=== PATIENT | female | born 2000 | race Caucasian/White ===

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

== ENCOUNTER 2020-01-13 08:40 | Day surgery (SDC) | payer BC ==
[2020-01-09 16:20] VITALS: BMI 33.6
[~2020-01-13 08:40] MED LIST: LACTATED RINGERS 1,000 ML IV SCH
[2020-01-13 08:57] VITALS: TEMP 97.8
[2020-01-13] MEDS ORDERED: LACTATED RINGERS 1,000 ML IV ONE (08:57)
[2020-01-13] MEDS ORDERED: LIDOCAINE 1% (10MG/ML) FOR IV START INTRADERMA ONE (09:05)
[2020-01-13] MEDS ORDERED: PROPOFOL 10 MG/ML 20 ML VIAL IV ONE (09:28)
[2020-01-13] MEDS ORDERED: LIDOCAINE 1% INJ 10MG/ML (20 ML MDV) ONE (09:28)
--- NOTE | 2020-01-13 09:52 | P.PCN ---
Date of Procedure: 01/13/20 Description of Procedure: BRIEF HISTORY: Patient is a 19-year-old female presenting for outpatient EGD for evaluation of abnormal immunological findings in the serum. The patient has been seen in the GI clinic with concerns of celiac disease. She follows up in the outpatient setting for EGD with biopsies. PROCEDURE PERFORMED: Esophagogastroduodenoscopy with biopsy. PREOPERATIVE DIAGNOSIS: Abnormal immunological findings in the serum, rule out celiac sprue. ESTIMATED BLOOD LOSS: Minimal. IV sedation per anesthesia. PROCEDURE: After informed consent was obtained, the patient was brought into the endoscopy unit. IV sedation was administered by Anesthesia under continuous monitoring. Initially the Olympus GIF-190 video endoscope was inserted into the mouth. Esophagus intubated without any difficulty. It was gradually advanced into the stomach and duodenum and carefully examined. The bulb and the second part of the duodenum appeared normal, with some villous blunting noted and biopsies taken to rule out celiac sprue. The scope at this time was withdrawn to the stomach, sheila quately insufflated with air, and upon careful examination, mucosa of the antrum, body, cardia and the fundus appeared normal, except for some mild punctate erythema in the antrum and body suggestive of mild gastritis with biopsies taken. The scope was then withdrawn into the esophagus. The GE junction was located at 37 cm from the incisors and biopsied. The esophagus appeared normal. There were no erosions or ulcerations seen and the patient tolerated the procedure well. IMPRESSION: 1. Mild gastritis. 2. Biopsies of the duodenum, antrum body and GE junction. RECOMMENDATIONS: The findings of this examination were discussed with the patient and her mother. Okay to resume diet. Okay to resume medications. Follow-up in GI clinic as scheduled for results of biopsies.
[2020-01-13 10:08] VITALS: BP 118/74; PULSE 84; RESP 18
== END 2020-01-13 10:24 | disposition home or self-care (01) ==
LOC: ORWHC2ENDO 08:40
PROVIDERS: ATTEND Internal Medicine
DX: K29.50 Unspecified chronic gastritis without bleeding (principal); K29.80 Duodenitis without bleeding; K20.90 Esophagitis, unspecified without bleeding; J45.909 Unspecified asthma, uncomplicated; E07.9 Disorder of thyroid, unspecified; Z79.890 Hormone replacement therapy; Z79.899 Other long term (current) drug therapy; Z88.8 Allergy status to other drugs, medicaments and biological substances; Z98.890 Other specified postprocedural states; Z90.49 Acquired absence of other specified parts of digestive tract
CPT/HCPCS: 81025; 88305; 43239; J2001; J2704

== ENCOUNTER → 2020-04-22 | Outpatient (CLI) | payer BC ==
[2020-04-22 16:11] LABS: Basophils # (A) 0 X 10*3/uL (0.00-0.10); Basophils % (A) 0 %; Eosinophils # (A) 0.08 X 10*3/uL (0.04-0.35); Eosinophils % (A) 1.5 %; HCT 42.9 % (37.2-46.3); HGB 13.8 g/dL (12.0-15.0); Lymphocytes # (A) 2.11 X 10*3/uL (0.90-5.00); Lymphocytes % (A) 38.7 %; MCH 31.4 pg (27.0-32.0); MCHC 32.2 g/dL (32.0-37.0); MCV 97.5 fL (80.0-97.0); Mean Platelet Volume 11.3 fL (9.5-12.2); Monocytes # (A) 0.43 X 10*3/uL (0.20-1.00); Monocytes % (A) 7.9 %; Neutrophils # (A) 2.82 X 10*3/uL (1.80-7.70); Neutrophils % (A) 51.7 %; Platelet Count 334 X 10*3/uL (140-440); WBC 5.45 X 10*3/uL (4.50-10.00)
== END | disposition home or self-care (01) ==
LOC: LABWHC1 09:21
PROVIDERS: ATTEND Obstetrics & Gynecology
DX: Z01.818 Encounter for other preprocedural examination (principal); N94.6 Dysmenorrhea, unspecified
CPT/HCPCS: 36415; 85025

== ENCOUNTER 2020-04-27 09:32 | Day surgery (SDC) | payer BC ==
[2020-04-22 10:10] VITALS: BMI 32.5
--- NOTE | 2020-04-23 15:15 | HP ---
HISTORY AND PHYSICAL DATE OF SURGERY: 04/27/2020 HISTORY OF PRESENT ILLNESS: The patient is a 19-year-old 0 para 0 who presented to the office with a long- standing history of severe dysmenorrhea which is currently being relatively well managed with continuous oral contraceptive pills. She does have a history that provides some consideration for the diagnosis of endometriosis, as the pain relaxes immediately with any degree of vaginal bleeding or cycling. She has seen multiple different consultants, including GI, which has been ruled out as an etiology, and she has also seen Reproductive Endocrinology, who recommended diagnostic laparoscopy. PAST MEDICAL HISTORY: Significant for dysmenorrhea, as noted above, hypothyroidism, and mild obesity. PAST SURGICAL HISTORY: She has had a laparoscopic cholecystectomy. OBSTETRICAL HISTORY: 0 para 0, currently using oral contraceptive pills for contraception. GYNECOLOGIC HISTORY: Unremarkable, with no history of any infections to include STDs. FAMILY HISTORY: Noncontributory. SOCIAL HISTORY: The patient is single and is a student. She is a nonsmoker and denies any other social concerns. CURRENT MEDICATIONS: Current medications include continuous oral contraceptive pills on a daily basis. She additionally takes Synthroid 200 mcg daily, vitamin D 5000 units daily, and iron sulfate 325 mg daily. ALLERGIES: NO KNOWN DRUG ALLERGIES. REVIEW OF SYSTEMS: Confined to history of present illness. PHYSICAL EXAMINATION: Vital signs are stable. The patient is afebrile. In general this is a well-developed, well-nourished white female in no acute distress. Her heart has a regular rhythm and rate without murmur. Her lungs are clear to auscultation bilaterally in all branch. Her abdomen is nondistended, has normoactive bowel sounds, is soft, nontender, and without any palpable masses. Her extremities are without any cyanosis, clubbing or edema and are nontender to palpation bilaterally. Pelvic examination is deferred to the operating room for exam under anesthesia. ASSESSMENT AND PLAN: Chronic pelvic pain with severe dysmenorrhea: To this point, the diagnosis of endometriosis has been presumptive. She has been cleared by GI for any etiology in that system at this point. Again, recommendation has been made by Reproductive Endocrinology for diagnostic laparoscopy, so we will proceed with diagnostic laparoscopy and indicated surgery to include possible ablation of endometriotic implants, should they be found. The risks and complications of the procedure have been thoroughly discussed, including the risk for bleeding, bleeding requiring transfusion, infection, and injury to local structures to specifically include the bowel, bladder and ureters. She has understood all of this and agreed to proceed. We are scheduled for the morning of Monday, April 27, for the procedures as outlined above. MMODL / IJN: [id number] /
[~2020-04-27 09:32] MED LIST changes: +DEXAMETHASONE SOD PHOSPHATE 4 MG/ML 1 ML VIAL IV ONE; +HYDROmorphone 0.5 MG/0.5 ML SYRINGE IVP PRN; +LIDOCAINE 1% (10MG/ML) FOR IV START INTRADERMA PRN; +ONDANSETRON 4 MG/2 ML VIAL IVP ONE; +Pre Op ABX Message 1 EACH MISC MISCELLANE ONE; +SCOPOLAMINE 1.5MG/72HR PATCH TRANSDERM ONE
[2020-04-27 09:49] VITALS: RESP 16
[2020-04-27] MEDS ORDERED: NEOSTIGMINE 1 MG/ML 10 ML VIAL ONE (12:03)
[2020-04-27] MEDS ORDERED: LIDOCAINE 1% INJ 10MG/ML (20 ML MDV) ONE (12:03)
[2020-04-27] MEDS ORDERED: ROCURONIUM 10 MG/ML (5 ML VIAL) IV ONE (12:03)
[2020-04-27] MEDS ORDERED: SUCCINYLCHOLINE CHLORIDE 100 MG/5 ML SYR IV ONE (12:03)
[2020-04-27] MEDS ORDERED: PROPOFOL 10 MG/ML 20 ML VIAL IV ONE (12:03)
[2020-04-27] MEDS ORDERED: MIDAZOLAM 2 MG/2 ML VIAL ONE (12:03)
[2020-04-27] MEDS ORDERED: GLYCOPYRROLATE 0.2 MG/ML 2 ML VIAL ONE (12:03)
[2020-04-27] MEDS ORDERED: fentaNYL (PF) 50 MCG/ML 2 ML AMP ONE (12:03)
[2020-04-27] MEDS ORDERED: LACTATED RINGERS 1,000 ML IV ONE ×2 (12:30→14:18)
[2020-04-27] MEDS ORDERED: BUPIVACAIN-EPI 0.5%-1:200,000 30 ML VIAL SQ ONE ×3 (12:32→13:03)
[2020-04-27] MEDS ORDERED: IBUPROFEN 600 MG TAB PO PRN (13:02)
[2020-04-27] MEDS ORDERED: ONDANSETRON 4 MG/2 ML VIAL IVP PRN (13:02)
[2020-04-27] MEDS ORDERED: Acetaminophen-Codeine 300-30mg TAB PO PRN ×2 (13:02)
[2020-04-27] MEDS ORDERED: KETOROLAC 15 MG/ML 1 ML VIAL IVP PRN (13:02)
[2020-04-27] MEDS ORDERED: diphenhydrAMINE 50 MG/ML 1 ML VIAL IVP PRN (13:02)
[2020-04-27] MEDS ORDERED: SIMETHICONE 80 MG CHEWABLE PO PRN (13:02)
[2020-04-27] MEDS ORDERED: METOCLOPRAMIDE 5 MG/ML 2 ML VIAL IVP PRN (13:02)
[2020-04-27] MEDS ORDERED: MEPERIDINE 50 MG/ML SYRINGE IVP ONE ×2 (13:10→13:19)
--- NOTE | 2020-04-27 13:10 | P.OP ---
Date of Procedure: 04/27/20 Preoperative Diagnosis: #1. Chronic pelvic pain #2. Severe dysmenorrhea Postoperative Diagnosis: Same plus #3. Endometriosis Procedure(s) Performed: #1. Diagnostic laparoscopy Anesthesia: SHASHANK Surgeon: Dayton Castillo Estimated Blood Loss (ml): 5 IV fluids (ml): 750 Urine output (ml): 20 Pathology: none sent Condition: stable Disposition: PACU Operative Findings: Preoperative pelvic examination demonstrated a 4-5 week retroverted mobile normal shaped uterus with normal adnexa bilaterally. Intraoperatively there was initially some difficulty in determining whether the trocar was intra-abdominal or preperitoneal appear to general surgeon was brought to the room and could not tell either. In the process of preparing to abandon the procedure the trocar was manipulated and of gas noted to be escaping freely. The scope was replaced and noted to be in the abdominal cavity meaning that the initial findings were indeed preperitoneal. The findings in the pelvis demonstrated a normal uterus, tubes, and ovaries with normal mobility. There is no evidence of endometriosis in or around the ovaries or the ovarian fossa bilaterally. There was, however, of powder burn norton in the cul-de-sac in several places consistent with the diagnosis of endometriosis. Remainder of the pelvis and abdomen appeared entirely normal. The appendix was not seen. Description of Procedure: The patient was prepped and draped in usual fashion after general endotracheal anesthesia was administered by the anesthesiologist. A speculum was placed and the anterior lip of the cervix grasped with single-tooth tenaculum allowing an acorn cannula to be placed for manipulation. The bladder was drained of approximately 20 mL of clear malik urine. Attention was turned to the abdomen where a 5 mm incision was made in a vertical fold of the umbilicus allowing insertion of a 5 mm optical trocar under direct visualization. Placement appeared to be completely seamless. The scope was then placed and significant a dhesions noted which were unclear as to whether the it was in the preperitoneal space or whether the patient had significant adhesive disease. A general surgeon was called for for an opinion and ultimately came to the room but was unable to determine whether or not the there was significant adhesive disease versus being preperitoneal. There are commendation was to abandon the procedure. In the process of preparing to remove the instrumentation and allow the pneumoperitoneum to escape through the trocar the trocar was manipulated and demonstrated significant flow through the open CO2 port. The scope was replaced and found to be within the abdominal cavity at this point demonstrating that the previous findings were in the preperitoneal. The wharfmaster mentation was then placed back and further pneumoperitoneum insufflated. A site was selected in the midline approximate 4-5 cm above the pubic symphysis where a 5 mm incision was made in the transverse plane allowing insertion of a 5 mm optical trocar under direct visualization without difficulty. The blunt probe and Trendelenburg positioning were utilized to sweep the bowel from the pelvis and the findings were as noted above. Again the uterus, tubes, and ovaries appeared entirely normal and free with no evidence of endometriosis on or around either the tubes or ovaries bilaterally. The cul-de-sac was noted to have several p owder burn norton indicating the diagnosis of endometriosis is present. The remainder the pelvis and lower abdomen appeared entirely normal. All instrumentation was then removed after completely evacuating the pneumoperitoneum through the 2 ports. The ports were then removed and the incisions closed with interrupted subcuticular stitches of 4-0 Vicryl followed by Band-Aids. Estimated blood loss for the entire case was approximate 5 mL or less. There were no complications aside from the short time of in the preperitoneal space. All sponge, instrument, needle counts were correct. The patient tolerated the procedure well and proceeded to the recovery room in stable condition.
[2020-04-27] MEDS ORDERED: LACTATED RINGERS 1,000 ML IV SCH (13:15)
[2020-04-27 14:02] VITALS: TEMP 98
[2020-04-27 15:03] VITALS: BP 109/65; PULSE 82
--- NOTE | 2020-04-28 05:54 | P.GSCN ---
History of Present Illness Consult date: 04/27/20 History of present illness: CHIEF COMPLAINT: History of chronic pelvic pain HISTORY OF PRESENT ILLNESS: I was called into the operating room for emergent intraoperative consultation for 19-year-old female with chronic pelvic pain. History is obtained by surgeon where patient has chronic pelvic pain, dysmenorrhea, and no previous abdominal surgeries. Clinical history was suspicious of endometriosis. At the time of the procedure, a 5-mm trocar was identified just above the umbilicus with insufflation. Features including fibrovascular tissue with mild bleeding was found with dissection into preperitoneal space versus the pelvis as small bowel, genitourinary structures or intestine were not clearly identified. Suggestion of left upper quadrant trocar was proposed for clear view of the pelvis versus abandoning the procedure. Surgeon was able to reposition trocar with entry into the peritoneum. PAST MEDICAL HISTORY: Please see list. PAST SURGICAL HISTORY: Please see list. MEDICATIONS: Please see list. ALLERGIES: Please see list. SOCIAL HISTORY: Please see list. FAMILY HISTORY: Please see list. REVIEW OF ORGAN SYSTEMS: Unable to obtain PHYSICAL EXAM: ABDOMEN: Soft and distended from pneumoperitoneum during procedure. ASSESSMENT: 1. Dysmenorrhea with chronic abdominal pain PLAN: 1. Suggestion of left upper quadrant trocar was proposed for clear view of the pelvis versus abandoning the procedure. Surgeon was able to reposition trocar with entry into the peritoneum. Past Medical History Past Medical History: Asthma, Thyroid Disorder Additional Past Medical History / Comment(s): abdominal pain, frequent diarrhea, states hx of endometriosis,celiac disease History of Any Multi-Drug Resistant Organisms: None Reported Past Surgical History: Cholecystectomy Additional Past Surgical History / Comment(s): wisdom teeth Past Anesthesia/Blood Transfusion Reactions: No Reported Reaction Additional Past Anesthesia/Blood Transfusion Reaction / Comm: NEVER HAD SURGERY BEFORE Smoking Status: Never smoker - Past Family History Father Family Medical History: Hypertension Mother Family Medical History: Asthma Additional Family Medical History / Comment(s): MOM HAS HX OF CHOLECYSTECTOMY Sister(s) Family Medical History: Asthma Medications and Allergies Home Medications Medication Instructions Recorded Confirmed Type Albuterol Sulfate [Proair Hfa] 1 - 2 puff INHALATION Q6HR PRN 01/09/20 04/27/20 History Control 1 tab PO HS 01/09/20 04/27/20 History Levothyroxine Sodium [Synthroid] 200 mcg PO DAILY 01/09/20 04/27/20 History Allergies Allergy/AdvReac Type Severity Reaction Status Date / Time cat dander Allergy Rash/Hives Verified 01/09/20 16:13 dog dander Allergy Rash/Hives Verified 04/22/20 09:57 horse dander Allergy Rash/Hives Verified 04/22/20 09:57 ragweed pollen Allergy Rash/Hives Verified 01/09/20 16:13 Surgical - Exam Vital Signs Temp Pulse Resp BP Pulse Ox 97.4 F L 70 16 120/64 97 04/27/20 09:47 04/27/20 09:47 04/27/20 09:47 04/27/20 09:47 04/27/20 09:47
== END 2020-04-27 15:20 | disposition home or self-care (01) ==
LOC: OR 09:32
PROVIDERS: ATTEND Obstetrics & Gynecology
DX: N94.6 Dysmenorrhea, unspecified (principal); R10.2 Pelvic and perineal pain; G89.29 Other chronic pain; J45.909 Unspecified asthma, uncomplicated; E03.9 Hypothyroidism, unspecified; E66.9 Obesity, unspecified; Z79.890 Hormone replacement therapy; Z79.899 Other long term (current) drug therapy; Z79.3 Long term (current) use of hormonal contraceptives; Z90.49 Acquired absence of other specified parts of digestive tract; Z98.818 Other dental procedure status; Z82.49 Family history of ischemic heart disease and other diseases of the circulatory system; Z82.5 Family history of asthma and other chronic lower respiratory diseases; Z91.09 Other allergy status, other than to drugs and biological substances; Z68.34 Body mass index [BMI] 34.0-34.9, adult
CPT/HCPCS: 49320; 81025; J2250; J1100; J2710; J2175; J2405; J2001; J3010; J0330; J2704; J1170

== ENCOUNTER → 2020-06-30 | Outpatient (CLI) | payer BC ==
--- NOTE | 2020-06-30 21:34 | CT ---
EXAMINATION TYPE: CT brain wo con DATE OF EXAM: 06/30/2020 COMPARISON: None. HISTORY: headaches, dizziness. no injury. CT DLP: 1106 mGycm. Automated Exposure Control for Dose Reduction was Utilized. TECHNIQUE: CT scan of the head is performed without contrast. FINDINGS: There is no acute intracranial hemorrhage, mass effect, or midline shift identified. The ventricles and sulci are within normal limits in size. Smith-white matter differentiation is maintain ed. The globes are intact and the visualized sinuses are clear. IMPRESSION: Unremarkable study.
== END | disposition home or self-care (01) ==
LOC: RADCTMAIN 16:19
PROVIDERS: ATTEND Physician Assistant Medical
DX: G43.109 Migraine with aura, not intractable, without status migrainosus (principal)
CPT/HCPCS: 70450

== ENCOUNTER → 2021-02-05 | Outpatient (CLI) | payer MEDICAID ==
--- NOTE | 2021-02-05 15:27 | XR ---
EXAMINATION TYPE: XR ankle complete RT DATE OF EXAM: 02/05/2021 CLINICAL HISTORY: Pain. TECHNIQUE: Frontal, lateral and oblique images of the right ankle are obtained. COMPARISON: Right ankle x-ray March 25, 2019 FINDINGS: There is no acute fracture/dislocation evident in the right ankle. The ankle mortise appe ars stable and within normal limits. The overlying soft tissue remains unremarkable. IMPRESSION: Unremarkable study. No significant change from prior.
== END | disposition home or self-care (01) ==
LOC: RADXRYALE 15:09
PROVIDERS: ATTEND Physician Assistant
DX: M25.571 Pain in right ankle and joints of right foot (principal)

== ENCOUNTER → 2021-12-02 | Outpatient (CLI) | payer MEDICAID ==
--- NOTE | 2021-12-02 17:07 | P.SLEEP ---
History of Present Illness DATE: 12/02/2021 CONSULTATION/NEW PATIENT EVALUATION HISTORY OF PRESENT ILLNESS/SLEEP-WAKE EVALUATION: 21 year old lady had been evaluated in the sleep center for excessive daytime sleepiness and possible obstructive sleep apnea hypopnea syndrome. SLEEP SCHEDULE: Usually sleep schedule on weekdays from 11 PM to 7 AM, during days off from 12 AM until 9 AM. FALLING ASLEEP: No problems with falling asleep, no TV in bedroom. DURING SLEEP: Patient usually sleeps on the side position. Normally she does not snore but developed snoring if have some sickness with closing of her nose. No history of hypnogogical hallucinations, sleep paralysis, or cataplexy. DURING THE DAY/WAKE STATE: In the morning patient wake up tired, has difficulties to pay attention, falling asleep during the day. She has problems with memory concentration and irritability and anxiety.. [place] sleepiness scale is in the very high range of 20. Patient may take some naps in the evening or afternoon. PAST MEDICAL HISTORY: Hypothyroidism, acid reflux, anemia, headaches, sinuses problems. PAST SURGICAL HISTORY: Cholecystectomy, right ankle surgery. MEDICATIONS: Levothyroxine 120 g once a day, famotidine twice a day. SOCIAL HISTORY: Negative for smoking, alcohol consumption occasional. FAMILY HISTORY: Hypertension, heart problems, snoring, during the sleep. REVIEW OF SYSTEMS: Sleepiness during the day. No fevers. No double vision. No recent chest pain. No shortness of breath. No abdominal pain. No bleeding episodes. No blood in urine. No seizure episodes. PHYSICAL EXAMINATION: GENERAL: A pleasant patient without any distress. VITAL SIGNS: BP 140/84 , HR 72 , RR 14 , weight 214.8 pounds, height 5 foot 4- 3/4 inches, body mass index 35.9 . HEENT: PERRLA, EOMI. Evaluation of oropharynx showed tongue protrudes midline, low position of soft palate Mallampati 4. NECK: Supple. No JVD. Thyroid is not palpable. 14 inches in circumference. LUNGS: Clear to percussion and to auscultation. Good air exchange. No wheezing or rhonchi. HEART: S1, S2 regular. No murmurs, gallops or rubs. ABDOMEN: Soft and nontender. Bowel sounds are present. No organomegaly appreciated. EXTREMITIES: No clubbing or cyanosis. FIELD ARTILLERY OPERATIONS MAN: Awake, alert, and oriented x3. Cranial nerves 2 to 7 intact. There is no fasciculation or atrophy noted. No focal deficits observed. ASSESSMENT: 1. Significant excessive daytime sleepiness with [place] Sleepiness Scale of 2058 necessity to include narcolepsy and idiopathic hypersomnia in differential diagnosis. 2. Small oropharyngeal air space Mallampati 4. Rule out obstructive sleep apnea-hypopnea syndrome. 3 obesity body mass index 35.9. 4. Hypertension in the office. 5 hypothyroidism. 6. Acid reflux. 7. Headaches. 8. History of sinuses problems. 9. History of anemia according to patient. 10. Status post cholecystectomy. 11. Status post right ankle surgery. PLAN: 1. Polysomnography for evaluation of patient's breathing during sleep with fallowing multiple sleep latency test if sleep study negative for obstructive sleep apnea hypopnea syndrome. 2. CPAP/BiPAP titration if sleep study confirms obstructive sleep apnea- hypopnea syndrome. 3. Preferable position during sleep on the side. 4. No driving if patient feels any sleepiness. Patient is aware of civil and criminal liability for unsafe driving. 5. Sleep hygiene with regular sleep time for at least 7.5-8 hours. 6. Watching weight. Thank you very much for referring this patient for consultation. Sincerely, Nathaniel Shore MD, PhD, FAASM. Diplomat of [place] [employer], Sleep Medicine Board by [place] [employer] [place] [employer] Welding Machine Operator [employer] [facility] [place] Past Medical History Past Medical History: Asthma, Thyroid Disorder Additional Past Medical History / Comment(s): abdominal pain, frequent diarrhea, states hx of endometriosis, History of Any Multi-Drug Resistant Organisms: None Reported Past Surgical History: Cholecystectomy Additional Past Surgical History / Comment(s): wisdom teeth Past Anesthesia/Blood Transfusion Reactions: No Reported Reaction Additional Past Anesthesia/Blood Transfusion Reaction / Comment(s): NEVER HAD SURGERY BEFORE Smoking Status: Never smoker - Past Family History Father Family Medical History: Hypertension Mother Family Medical History: Asthma Additional Family Medical History / Comment(s): MOM HAS HX OF CHOLECYSTECTOMY Sister(s) Family Medical History: Asthma Medications and Allergies Home Medications Medication Instructions Recorded Confirmed Type Albuterol Sulfate [Proair Hfa] 1 - 2 puff INHALATION Q6HR PRN 01/09/20 04/27/20 History Control 1 tab PO HS 01/09/20 04/27/20 History Levothyroxine Sodium [Synthroid] 200 mcg PO DAILY 01/09/20 04/27/20 History Allergies Allergy/AdvReac Type Severity Reaction Status Date / Time cat dander Allergy Rash/Hives Verified 01/09/20 16:13 dog dander Allergy Rash/Hives Verified 04/22/20 09:57 horse dander Allergy Rash/Hives Verified 04/22/20 09:57 ragweed pollen Allergy Rash/Hives Verified 01/09/20 16:13 Sleep Note - Sleep Note Sleep Note: Temperature: Pulse Rate: Respiratory Rate: Blood Pressure: SpO2: Height: Weight: BMI: Neck Circumference:
== END ==
LOC: SLEEP 14:34
PROVIDERS: ATTEND Internal Medicine
DX: G47.10 Hypersomnia, unspecified (principal); E66.9 Obesity, unspecified; Z68.35 Body mass index [BMI] 35.0-35.9, adult; I10 Essential (primary) hypertension; E03.9 Hypothyroidism, unspecified; K21.9 Gastro-esophageal reflux disease without esophagitis; R51.9 Headache, unspecified; Z86.2 Personal history of diseases of the blood and blood-forming organs and certain disorders involving the immune mechanism; Z87.09 Personal history of other diseases of the respiratory system; Z98.890 Other specified postprocedural states
CPT/HCPCS: 99211

== ENCOUNTER → 2021-12-03 | Outpatient (CLI) | payer MEDICAID ==
--- NOTE | 2021-12-03 08:51 | US ---
EXAMINATION TYPE: US abdomen complete DATE OF EXAM: 12/03/2021 COMPARISON: NONE CLINICAL HISTORY: R10.2 PELVIC AND PERINEAL PAIN R10.84. cholecystectomy, epigastric pain, chest pain TECHNIQUE: Multiple sonographic images of the abdomen are obtained. FINDINGS: EXAM MEASUREMENTS: Liver Length: 16.4 cm Gallbladder Wall: Surgically absent CBD: 0.6 cm Spleen: 11.6 cm Right Kidney: 11.0 x 3.9 x 5.2 cm Left Kidney: 11.5 x 5.1 x 4.5 cm PIPE LINE REPAIRER NOTES: *technical limitations due to large amount of overlying bowel content Pancreas: Obscured by bowel gas Liver: wnl Gallbladder: Surgically absent Evidence for sonographic Ewing's sign: no CBD: wnl Spleen: wnl Right Kidney: no evidence of hydronephrosis Left Kidney: limited evaluation, no evidence of hydronephrosis Upper IVC: wnl Abd Aorta: wnl The liver is homogenous. The intrahepatic portion of the IVC and proximal abdominal aorta are within normal limits. Common bile duct is unremarkable. The visualized portions of the pancreas are homog enous. The spleen is unremarkable. Kidneys are symmetric and free of hydronephrosis. No renal lesi ons are seen. IMPRESSION: Unremarkable study
--- NOTE | 2021-12-03 08:53 | US ---
EXAMINATION TYPE: US pelvic complete DATE OF EXAM: 12/03/2021 COMPARISON: NONE CLINICAL HISTORY: R10.2 PELVIC AND PERINEAL PAIN R10.84. bleeding since end of July. Intermittent pelv ic pain TECHNIQUE: Transabdominal (TA). Date of LMP: unknown EXAM MEASUREMENTS: Uterus: 7.2 x 3.6 x 4.4 cm Endometrial Stripe: 0.5 cm Right Ovary: 3.2 x 1.8 x 1.6 cm Left Ovary: 3.4 x 1.9 x 1.9 cm 1. Uterus: Anteverted wnl 2. Endometrium: wnl 3. Right Ovary: follicles noted 4. Left Ovary: follicles noted 5. Bilateral Adnexa: wnl 6. Posterior cul-de-sac: trace amount of free fluid IMPRESSION: No significant abnormality seen
== END | disposition home or self-care (01) ==
LOC: RADUSWWP 07:34
PROVIDERS: ATTEND Family Medicine
DX: R10.2 Pelvic and perineal pain (principal); R10.84 Generalized abdominal pain
CPT/HCPCS: 76700; 76856

== ENCOUNTER → 2022-03-10 | Outpatient (CLI) | payer BC ==
--- NOTE | 2022-03-10 16:57 | P.PN ---
Subjective DATE: 03/10/2022 FOLLOW UP VISIT. Patient returned to sleep center for follow-up visit to discuss results of sleep studies and following plan. I discuss results of sleep studies with patient in details. No significant respiratory abnormalities during sleep. No significant periodic limb movements. Multiple sleep latency test confirmed sleepiness minutes sleep latency 4.5 minutes. One sleep onset REM periods have been documented during the first nap. Patient continued to feel sleepiness during the day. [place] sleepiness scale is in the very high range of 20. MEDICATIONS:1. Levothyroxine 120 g once a day 2. Famotidine twice a day During physical exam: GENERAL: A pleasant patient without any distress. VITAL SIGNS: BP 120/80, HR 86, RR 16 , weight 222.8, temperature 97.1, oxygen saturation at room air 98% . HEENT: PERRLA, EOMI. NECK: Supple. No JVD. LUNGS: Clear to percussion and to auscultation. Good air exchange. No wheezing or rhonchi. HEART: S1, S2 regular. ABDOMEN: Soft and nontender. EXTREMITIES: No clubbing or cyanosis. EMS INSTRUCTOR: Awake, alert, and oriented x3. No focal deficit. Impressions: 1. No significant respiratory abnormalities during sleep 2. No significant periodic limb movements. 3. Multiple sleep latency test confirmed sleepiness. Mean sleep latency 4.5 minutes with one sleep onset REM. 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 4. Obesity. 5. Acid reflux. 6. Headaches. 7. History of sinuses problems. 8. History of anemia. 9. Status post cholecystectomy. 10 status post right ankle surgery Plan: 1. Patient will will be started on treatment with Adderall 5 mg at 8 AM and at 1 PM 2. Sleep hygiene with regular time in bed for at least 8 hours. 3. Daytime naps permitted 4. Precautions related to driving. No driving if feel any sleepiness. Patient is aware about civil and criminal liability for unsafe driving, promised to f ollow recommendations. 5. Follow up visit in 1 months or earlier if patient has any problems. Thank you very much for allowing me to participate in the management of your patient. Nathaniel Shroe MD, PhD, FAASM. Diplomat of [place] [employer], Sleep Medicine Board by [employer] Data Control Clerk Supervisor [facility] [place]
== END ==
LOC: SLEEP 16:33
PROVIDERS: ATTEND Internal Medicine
DX: K21.9 Gastro-esophageal reflux disease without esophagitis (principal); E66.9 Obesity, unspecified; R51.9 Headache, unspecified; Z98.890 Other specified postprocedural states; Z86.2 Personal history of diseases of the blood and blood-forming organs and certain disorders involving the immune mechanism; Z87.09 Personal history of other diseases of the respiratory system; Z91.048 Other nonmedicinal substance allergy status

== ENCOUNTER → 2022-11-03 | Outpatient (CLI) | payer BC ==
--- NOTE | 2022-11-03 16:56 | P.PN ---
Subjective DATE: 11/03/2022 FOLLOW UP VISIT. Patient returned to sleep center for follow-up visit related to treatment of significant excessive daytime sleepiness secondary to narcolepsy. Patient is on treatment with Adderall 20 mg 2, if necessary 3 times a day. No side effects of medications. Patient is able to control sure alertness during the day on the side regimen of Adderall. . [place] sleepiness scale is 4, which is normal. MEDICATIONS:1. Adderall 20 mg 23 times a day 2. DATA CENTER SOLUTIONS ARCHITECT thyroid 90 g once a day During physical exam: GENERAL: A pleasant patient without any distress. VITAL SIGNS: BP 120/80, HR 86, RR 12 , weight 168.8, temperature 97.5, oxygen saturation at room air 99% . HEENT: PERRLA, EOMI. NECK: Supple. No JVD. LUNGS: Clear to percussion and to auscultation. Good air exchange. No wheezing or rhonchi. HEART: S1, S2 regular. ABDOMEN: Soft and nontender. EXTREMITIES: No clubbing or cyanosis. LITHOGRAPH PRESS FEEDER: Awake, alert, and oriented x3. No focal deficit. Impressions: 1. 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 2. Acid reflux. 3. History of headaches. 4. History of obesity, presently patient lost 44 pounds comparing to the previous visit, BMI decreased to 28.3. 5. History of anemia. 6. Status post cholecystectomy. 7. Status post right ankle surgery. Plan: 1. Patient will continue treatment with Adderall 20 mg 2, if necessary 3 times a day. 2. Sleep hygiene with regular time in bed for at least 8 hours. 3. Daytime naps permitted 4. Precautions related to driving. No driving if feel any sleepiness. Patient is aware about civil and criminal liability for unsafe driving, promised to follow recommendations. 5. Follow up visit in 4-6 months or earlier if patient has any problems. Thank you very much for allowing me to participate in the management of your patient. Nathaniel Shore MD, PhD, FAASM. Diplomat of [place] [employer], Sleep Medicine Board by [place] [employer] Transportation Maintenance Supervisor of [facility] [place]
== END ==
LOC: 3 N SLEEP 16:33
PROVIDERS: ATTEND Internal Medicine
DX: G47.419 Narcolepsy without cataplexy (principal); K21.9 Gastro-esophageal reflux disease without esophagitis; E66.9 Obesity, unspecified; D64.9 Anemia, unspecified; Z68.28 Body mass index [BMI] 28.0-28.9, adult; Z90.49 Acquired absence of other specified parts of digestive tract; Z98.890 Other specified postprocedural states; Z86.69 Personal history of other diseases of the nervous system and sense organs; Z91.048 Other nonmedicinal substance allergy status
CPT/HCPCS: 99212

== ENCOUNTER → 2023-07-06 | Outpatient (CLI) | payer OTHER | END | disposition home or self-care (01) | LOC: LABWHC1 12:46 | PROVIDERS: ATTEND Internal Medicine Endocrinology, Diabetes & Metabolism | DX: E03.8 Other specified hypothyroidism (principal) | CPT/HCPCS: 36415; 84443 ==